=== PATIENT | female | born 1995 ===

== ENCOUNTER 2025-02-17 20:07 | Emergency (ER) | payer SELFPAY ==
[2025-02-17 20:28] VITALS: BP 123/92; PULSE 104; RESP 20; TEMP 98.6; BMI 16.5
[2025-02-17] MEDS ORDERED: ALBUTEROL SO4 HFA INHALER IH ONE (21:14)
== END 2025-02-17 21:16 | disposition home or self-care (01) ==
LOC: JERFT 20:07
DX: J45.909 Unspecified asthma, uncomplicated (principal); Z76.0 Encounter for issue of repeat prescription
CPT/HCPCS: 99281-25